=== PATIENT | male | born 1960 | race Caucasian/White ===

== ENCOUNTER 2022-03-08 20:25 | Inpatient (IN) | payer BC ==
[~2022-03-08] VITALS: Ht 188 cm; Wt 133.8 kg
[~2022-03-08 20:25] MED LIST: ATENOLOL50 MG PO; FISH OIL 1,0001 EAC1 PO; FLOMAX0.4 MG PO; FUROSEMIDE20 MG PO; HYDRALAZINE HCL50 MG PO; HYDRALAZINE PO; LASIX40 MG PO; LEXAPRO20 MG PO; LOTREL 10-20 M1 EACH PO; MUCINEX600 MG PO; TYLENOL 500 MG500 MG PO; ZYRTEC10 MG PO
[2022-03-08 21:05] LABS: HEMOGLOBIN 10.3 gm/dl (14.0-17.5); RED BLOOD COUNT 3.6 M/UL (4.20-5.50); WHITE BLOOD COUNT 8.7 K/UL (4.5-11.0)
[2022-03-09] MEDS ORDERED: HYDRALAZINE HC100 MG PO (01:16)
[2022-03-09] MEDS ORDERED: CLONIDINE HCL0.1 MG PO (01:17)
[2022-03-09] MEDS ORDERED: DOCUSATE SODIU250 MG PO (01:17)
[2022-03-09] MEDS ORDERED: LEVOCETIRIZINE D5 MG PO (01:18)
[2022-03-09] MEDS ORDERED: CARDURA 2MG TAB2 MG PO (01:18)
[2022-03-09] MEDS ORDERED: LISINOPRIL20 MG PO (01:19)
[2022-03-09] MEDS ORDERED: FLOMAX 0.4 MG0.4 MG PO (01:19)
[2022-03-09 01:55] LABS: HEMOGLOBIN 9.5 gm/dl (14.0-17.5); RED BLOOD COUNT 3.33 M/UL (4.20-5.50); WHITE BLOOD COUNT 7.2 K/UL (4.5-11.0)
[2022-03-10 02:18] LABS: HEMOGLOBIN 9.3 gm/dl (14.0-17.5); RED BLOOD COUNT 3.24 M/UL (4.20-5.50); WHITE BLOOD COUNT 7.2 K/UL (4.5-11.0)
[2022-03-10 10:16] LABS: HBSAG SCREEN Negative (Negative); HEP B CORE AB, TOT Negative (Negative); HEP C VIRUS AB 0.1 (0.0-0.9)
[2022-03-10 12:16] LABS: ANTISTREPTOLYSIN O AB 29.9 IU/mL (0.0-200.0); COMPLEMENT C3, SERUM 89 mg/dL (82-167); COMPLEMENT C4, SERUM 18 mg/dL (12-38)
[2022-03-10 13:11] LABS: A/G RATIO 1.3 (0.7-1.7); ALBUMIN 3.1 g/dL (2.9-4.4); ALPHA-1-GLOBULIN 0.2 g/dL (0.0-0.4); ALPHA-2-GLOBULIN 0.8 g/dL (0.4-1.0); BETA GLOBULIN 0.7 g/dL (0.7-1.3); GAMMA GLOBULIN 0.7 g/dL (0.4-1.8); GLOBULIN, TOTAL 2.4 g/dL (2.2-3.9); IMMUNOGLOBULIN A, QN, SERUM 146 mg/dL (90-386); IMMUNOGLOBULIN G, QN, SERUM 679 mg/dL (603-1613); IMMUNOGLOBULIN M, QN, SERUM 68 mg/dL (20-172); M-SPIKE Not Observed g/dL (Not Observed); PROTEIN, TOTAL, SERUM 5.5 g/dL (6.0-8.5)
[2022-03-10 15:13] LABS: ANTI-DSDNA ANTIBODIES <1 IU/mL (0-9)
[2022-03-10 17:13] LABS: ATYPICAL PANCA <1:20 titer (Neg:<1:20); CYTOPLASMIC (C-ANCA) <1:20 titer (Neg:<1:20); PERINUCLEAR (P-ANCA) <1:20 titer (Neg:<1:20)
[2022-03-11 02:09] LABS: HEMOGLOBIN 9.2 gm/dl (14.0-17.5); RED BLOOD COUNT 3.23 M/UL (4.20-5.50); WHITE BLOOD COUNT 7.6 K/UL (4.5-11.0)
[2022-03-13 11:30] LABS: HEMOGLOBIN 8.9 gm/dl (14.0-17.5); RED BLOOD COUNT 3.08 M/UL (4.20-5.50); WHITE BLOOD COUNT 8.5 K/UL (4.5-11.0)
[2022-03-14 03:13] LABS: HEMOGLOBIN 8.8 gm/dl (14.0-17.5); RED BLOOD COUNT 3.07 M/UL (4.20-5.50); WHITE BLOOD COUNT 7.1 K/UL (4.5-11.0)
[2022-03-15 03:20] LABS: HEMOGLOBIN 9.1 gm/dl (14.0-17.5); RED BLOOD COUNT 3.16 M/UL (4.20-5.50); WHITE BLOOD COUNT 7.4 K/UL (4.5-11.0)
[2022-03-15 10:15] LABS: HBSAG SCREEN Negative (Negative); HEP A AB, IGM Negative (Negative); HEP B CORE AB, IGM Negative (Negative); HEP C VIRUS AB 0.2 (0.0-0.9)
--- NOTE | 2022-03-15 21:49 | NUR ---
PATIENT BACK ON FLOOR FROM DIALYSIS AT 0 REPORT CALLED ON PT BY ELISABET AND BP WAS 138/98 AND 2L WHEN UPON FLOOR VITALS WERE 76HR, 94% O2, 13 RR, 158/103 (116) BP.
[2022-03-16 03:17] LABS: HEMOGLOBIN 9.6 gm/dl (14.0-17.5); RED BLOOD COUNT 3.35 M/UL (4.20-5.50); WHITE BLOOD COUNT 7.3 K/UL (4.5-11.0)
[2022-03-16 14:13] LABS: M-SPIKE, % Not Observed % (Not Observed); PROTEIN,TOTAL,URINE 257.8 mg/dL (Not Estab.)
[2022-03-17 01:39] LABS: HEMOGLOBIN 9.8 gm/dl (14.0-17.5); RED BLOOD COUNT 3.46 M/UL (4.20-5.50); WHITE BLOOD COUNT 7.7 K/UL (4.5-11.0)
[2022-03-17] MEDS ORDERED: VITAMIN D21250 MCG PO (15:40)
[2022-03-17] MEDS ORDERED: CLONIDINE HCL0.1 MG PO (15:40)
[2022-03-17] MEDS ORDERED: HYDRALAZINE HC100 MG PO (15:40)
== END 2022-03-17 16:28 | disposition home or self-care (01) | DRG 673 ==
LOC: ER1 20:25 → CDU 22:25 → PROG CARE 22:25
PROVIDERS: Emergency Medicine; Internal Medicine; Internal Medicine Nephrology; Surgery; ADMIT Internal Medicine
PROC: B24BZZZ Ultrasonography of Heart with Aorta (ICD-10-PCS; 2022-03-13)
PROC: 02HV33Z Insertion of Infusion Device into Superior Vena Cava, Percutaneous Approach (ICD-10-PCS; 2022-03-15)
PROC: 5A1D70Z Performance of Urinary Filtration, Intermittent, Less than 6 Hours Per Day (ICD-10-PCS; 2022-03-15)
PROC: 0JH63XZ Insertion of Tunneled Vascular Access Device into Chest Subcutaneous Tissue and Fascia, Percutaneous Approach (ICD-10-PCS; principal; 2022-03-15 17:00)
PROC: 5A1D70Z Performance of Urinary Filtration, Intermittent, Less than 6 Hours Per Day (ICD-10-PCS; 2022-03-16)
PROC: 5A1D70Z Performance of Urinary Filtration, Intermittent, Less than 6 Hours Per Day (ICD-10-PCS; 2022-03-17)
DX: N17.9 Acute kidney failure, unspecified (principal); J18.9 Pneumonia, unspecified organism; Z20.822 Contact with and (suspected) exposure to COVID-19; E87.2 Acidosis; I47.1 Supraventricular tachycardia; I12.9 Hypertensive chronic kidney disease with stage 1 through stage 4 chronic kidney disease, or unspecified chronic kidney disease; N25.81 Secondary hyperparathyroidism of renal origin; N50.1 Vascular disorders of male genital organs; I44.1 Atrioventricular block, second degree; E87.5 Hyperkalemia; D64.9 Anemia, unspecified; K59.00 Constipation, unspecified; D47.2 Monoclonal gammopathy; N18.6 End stage renal disease; E55.9 Vitamin D deficiency, unspecified; E66.01 Morbid (severe) obesity due to excess calories; E11.22 Type 2 diabetes mellitus with diabetic chronic kidney disease; D63.1 Anemia in chronic kidney disease; N40.0 Benign prostatic hyperplasia without lower urinary tract symptoms; E87.6 Hypokalemia; F40.240 Claustrophobia; R09.02 Hypoxemia; D89.2 Hypergammaglobulinemia, unspecified; N18.30 Chronic kidney disease, stage 3 unspecified; Z87.891 Personal history of nicotine dependence; Z79.899 Other long term (current) drug therapy; Z82.49 Family history of ischemic heart disease and other diseases of the circulatory system; Z99.2 Dependence on renal dialysis; Z91.14 Patient's other noncompliance with medication regimen; Z87.820 Personal history of traumatic brain injury; Z90.49 Acquired absence of other specified parts of digestive tract
CPT/HCPCS: ECHO; 36415; 71045; 71046; 77001; 80048; 80053; 80074; 81001; 82570; 82607; 82652; 82746; 82784; 83036; 83520; 83540; 83550; 83735; 83883; 83970; 84100; 84132; 84133; 84155; 84156; 84165; 84166; 84300; 84439; 84443; 85025; 85027; 85610; 85730; 85810; 86038; 86060; 86160; 86162; 86225; 86256; 86334; 86335; 86704; 86706; 86708; 86803; 87340; 89050; 90935; 90937; 93005; 93270; 93306; 96374; 99284; C1750; C1769; G0378; J0360; J0690; J0696; J1100; J1642; J1644; J2001; J2250; J2405; J2704; J3010; J3370; J7030; J7040; J7120; P9047; U0002